=== PATIENT | female | born 1990 | race Caucasian/White ===

== ENCOUNTER 2017-06-20 10:12 | Emergency (ER) | payer MEDICAID ==
[2017-06-20] MEDS ORDERED: Sodium Chloride 0.9% 10 ML Syringe FLUSH PRN (11:04)
--- NOTE | 2017-06-20 11:07 | EDM.PDOC ---
ED HPI GENERAL MEDICAL PROBLEM - General Chief Complaint: Abdominal Pain Stated Complaint: LOWER ABDOMINAL PAIN,NAUSEA,VOMITING Time Seen by Provider: 06/20/17 10:55 Source of Information: Reports: Patient, RN Notes Reviewed History Limitations: Reports: No Limitations - History of Present Illness INITIAL COMMENTS - FREE TEXT/NARRATIVE: 26-year-old female presents emergency department day complaint of abdominal pain , she states the pain has been ongoing for the last couple months however is progressively gotten worse over the last 24 hours it is predominantly suprapubic area she did have nausea and vomiting as well as diarrhea no fever shortness breath or chest pain no significant past medical history does have a Mirena in place for about one year - Related Data Allergies Allergy/AdvReac Type Severity Reaction Status Date / Time No Known Allergies Allergy Verified 06/20/17 10:38 Home Meds: Home Meds . 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 - Infectious Disease History Infectious Disease History: Reports: Chicken Pox Social & Family History - Family History Oncologic: Reports: Other (See Below) Other Oncologic Family History: DAD'S PARENTS BOTH WITH CANCER - - UNKNOWN TYPE - Tobacco Use Smoking Status *Q: Current Every Day Smoker Years of Tobacco use: 10 Packs/Tins Daily: 0.2 Second Hand Smoke Exposure: No - Caffeine Use Caffeine Use: Reports: Coffee - Alcohol Use Days Per Week of Alcohol Use: 7 Number of Drinks Per Day: 2 Total Drinks Per Week: 14 - Recreational Drug Use Recreational Drug Use: No ED ROS GENERAL - Review of Systems Review Of Systems: See Below Constitutional: Denies: Fever, Chills HEENT: Reports: No Symptoms Respiratory: Reports: No Symptoms Cardiovascular: Reports: No Symptoms GI/Abdominal: Reports: Abdominal Pain, Diarrhea, Nausea, Vomiting : Reports: No Symptoms Musculoskeletal: Reports: No Symptoms Skin: Reports: No Symptoms Neurological: Reports: No Symptoms ED EXAM, GI/ABD - Physical Exam Exam: See Below Text/Narrative:: General: Female, not in any distress, alert and oriented x3 HEENT: head is atraumatic normocephalic, eyes pupils equal round reactive to light, sclera clear no conjunctivitis appreciated. Ears tympanic membranes clear and chinchilla landmarks and light reflex are present bilaterally canals are clear. Nose no septal deviation, nares are clear, no blood present. Mouth mucosa is moist and pink no erythema or exudate noted in soft palate, tongue is midline uvula is midline, dentition is intact. Neck: Supple no thyromegaly no tracheal deviation. Nodes: Cervical nodes subclavicular nodes nontender no palpable lymphadenopathy noted. Lungs: clear to auscultation bilaterally with symmetrical respirations, no adventitious noise appreciated. CV: Regular rate and rhythm S1 and S2 appreciated no murmurs rubs or gallops noted. Abdomen: Soft, tender, suprapubic area, no palpable masses or organomegaly appreciated, no distention no guarding bowel sounds are present, no CVA tenderness Neuro: Cranial nerves II through XII grossly intact Skin: Warm and dry, intact Extremities: No lower extremity edema appreciated, pedal pulse is +2. Course - Vital Signs Last Recorded V/S: Last Vital Signs Temp 96.8 F 06/20/17 10:39 Pulse 93 06/20/17 10:39 Resp 16 06/20/17 10:39 BP 130/69 06/20/17 10:39 Pulse Ox 99 06/20/17 10:39 - Orders/Labs/Meds Orders: Active Orders 24 hr Category Date Time Status Peripheral IV Care [RC] . DIRECTED Care 06/20/17 11:04 Active Peripheral IV Insertion Adult [OM.PC] Urgent Oth 06/20/17 11:04 Ordered Labs: Laboratory Tests 06/20/17 06/20/17 06/20/17 Range/Units 11:10 11:10 11:24 WBC 11.3 H (4.5-11.0) K/uL RBC 4.66 (3.30-5.50) M/uL Hgb 14.3 (12.0-15.0) g/dL Hct 42.4 (36.0-48.0) % MCV 91 (80-98) fL MCH 31 (27-31) pg MCHC 34 (32-36) % Plt Count 218 (150-400) K/uL Neut % (Auto) 92 H (36-66) % Lymph % (Auto) 3 L (24-44) % Emmet % (Auto) 4 (2-6) % Eos % (Auto) 0 L (2-4) % Baso % (Auto) 0 (0-1) % Sodium 140 (140-148) mmol/L Potassium 4.2 (3.6-5.2) mmol/L Chloride 107 (100-108) mmol/L Carbon Dioxide 22 (21-32) mmol/L Anion Gap 11.1 (5.0-14.0) mmol/L BUN 17 (7-18) mg/dL Creatinine 0.6 (0.6-1.0) mg/dL Est Cr Clr Drug Dosing 136.96 mL/min Estimated GFR (MDRD) > 60 (>60) Glucose 90 (74-106) mg/dL Calcium 8.7 (8.5-10.1) mg/dL Total Bilirubin 0.9 (0.2-1.0) mg/dL AST 22 (15-37) U/L ALT 18 (12-78) U/L Alkaline Phosphatase 34 L (46-116) U/L C-Reactive Protein 1.35 H (0.0-0.3) mg/dL Total Protein 6.9 (6.4-8.2) g/dL Albumin 3.9 (3.4-5.0) g/dL Globulin 3.0 (2.3-3.5) g/dL Albumin/Globulin Ratio 1.3 (1.2-2.2) Lipase 121 (73-393) U/L Urine Color Urine Appearance Urine pH (4.5-8.0) Ur Specific [place] (1.008-1.030) Urine Protein (NEGATIVE) mg/dL Urine Glucose (UA) (NEGATIVE) mg/dL Urine Ketones (NEGATIVE) mg/dL Urine Occult Blood (NEGATIVE) Urine Nitrite (NEGATIVE) Urine Bilirubin (NEGATIVE) Urine Urobilinogen (NORMAL) mg/dL Ur Leukocyte Esterase (NEGATIVE) Urine RBC (0-5) Urine WBC (0-5) Ur Epithelial Cells Amorphous Sediment Urine Bacteria Urine Mucus Urine HCG, Qual Negative 06/20/17 Range/Units 11:24 WBC (4.5-11.0) K/uL RBC (3.30-5.50) M/uL Hgb (12.0-15.0) g/dL Hct (36.0-48.0) % MCV (80-98) fL MCH (27-31) pg MCHC (32-36) % Plt Count (150-400) K/uL Neut % (Auto) (36-66) % Lymph % (Auto) (24-44) % Emmet % (Auto) (2-6) % Eos % (Auto) (2-4) % Baso % (Auto) (0-1) % Sodium (140-148) mmol/L Potassium (3.6-5.2) mmol/L Chloride (100-108) mmol/L Carbon Dioxide (21-32) mmol/L Anion Gap (5.0-14.0) mmol/L BUN (7-18) mg/dL Creatinine (0.6-1.0) mg/dL Est Cr Clr Drug Dosing mL/min Estimated GFR (MDRD) (>60) Glucose (74-106) mg/dL Calcium (8.5-10.1) mg/dL Total Bilirubin (0.2-1.0) mg/dL AST (15-37) U/L ALT (12-78) U/L Alkaline Phosphatase (46-116) U/L C-Reactive Protein (0.0-0.3) mg/dL Total Protein (6.4-8.2) g/dL Albumin (3.4-5.0) g/dL Globulin (2.3-3.5) g/dL Albumin/Globulin Ratio (1.2-2.2) Lipase (73-393) U/L Urine Color Yellow Urine Appearance Clear Urine pH 5.0 (4.5-8.0) Ur Specific [place] 1.015 (1.008-1.030) Urine Protein Negative (NEGATIVE) mg/dL Urine Glucose (UA) Normal (NEGATIVE) mg/dL Urine Ketones 15 H (NEGATIVE) mg/dL Urine Occult Blood Negative (NEGATIVE) Urine Nitrite Negative (NEGATIVE) Urine Bilirubin Small (NEGATIVE) Urine Urobilinogen Normal (NORMAL) mg/dL Ur Leukocyte Esterase Negative (NEGATIVE) Urine RBC Not seen (0-5) Urine WBC 0-5 (0-5) Ur Epithelial Cells Few Amorphous Sediment Not seen Urine Bacteria Not seen Urine Mucus Moderate Urine HCG, Qual Meds: Medications Discontinued Medications Generic Name Dose Route Start Last Admin Trade Name Freq PRN Reason Stop Dose Admin Sodium Chloride 1,000 mls @ 500 mls/hr 06/20/17 11:15 Normal Saline IV ASDIRECTED KARTHIKEYAN Sodium Chloride 10 ml 06/20/17 11:04 Saline Flush FLUSH ASDIRECTED PRN Keep Vein Open Departure - Departure Time of Disposition: 12:52 Disposition: Home, Self-Care 01 Condition: Good (been discharged) Clinical Impression: Gastroenteritis - Discharge Information Referrals: PCP,None [Primary Care Provider] - Forms: ED Department Discharge Additional Instructions: Use Zofran as needed to control nausea and vomiting symptoms, Please followup with your primary care provider in 3-5 days if not better, please call return to the emergency department with worsening of symptoms. - My Orders Last 24 Hours: My Active Orders 06/20/17 11:04 Peripheral IV Care [RC] . DIRECTED Peripheral IV Insertion Adult [OM.PC] Urgent - Assessment/Plan Last 24 Hours: My Active Orders 06/20/17 11:04 Peripheral IV Care [RC] . DIRECTED Peripheral IV Insertion Adult [OM.PC] Urgent Plan: Assessment Acuity = acute Site and laterality = abdominal pain Etiology = unclear etiology concern for gastroenteritis Manifestations = nausea and vomiting Location of injury = Home Lab values = CBC, CMP within normal limits, CRP 1.26, ultrasound shows IUD correct placement otherwise unremarkable exam, urinalysis unremarkable beta-hCG is negative Plan I did review lab work ultrasound results with her prescription for written for Zofran 4 mg ODT she take by mouth 3 times a day when necessary her follow-up with her primary care in 3-5 days if not better Patient was in agreement with the plan all questions were answered, they were instructed to return to the emergency department or call for worsening symptoms. This note was dictated using [employer] voice recognition software please call with any questions.
[2017-06-20] MEDS ORDERED: Sodium Chloride 0.9% 1,000 ML IV SCH (11:15)
--- NOTE | 2017-06-20 12:30 | US ---
Pelvis Non OB Comp, OB Transvaginal INDICATION: pelvic pain, iud. FINDINGS: The uterus measures 8.0 x 4.5 x 5.7 cm. IUD is in proper position. Endometrial stripe measu res 6 mm. Left and right ovaries are within normal limits with normal vascular flow. IMPRESSION: IUD in proper position. Exam otherwise unremarkable.
== END 2017-06-20 13:16 | disposition home or self-care (01) ==
LOC: JP.ED 10:12
DX: K52.9 Noninfective gastroenteritis and colitis, unspecified (principal); F17.210 Nicotine dependence, cigarettes, uncomplicated
CPT/HCPCS: 36415; 76817; 76817-26; 76830; 76830-26; 76856; 76856-26; 80053; 81001; 81025; 83690; 85025; 86140; 99284-25

== ENCOUNTER 2017-12-24 15:47 | Emergency (ER) | payer MEDICAID ==
[2017-12-24] MEDS ORDERED: Diphtheria,Pertussis(Acell),Tetanus Vaccine 0.5 ML SDV IM ONE (16:12)
--- NOTE | 2017-12-24 16:35 | EDM.PDOC ---
ED HPI GENERAL MEDICAL PROBLEM - General Chief Complaint: Laceration Stated Complaint: CUT LEFT WRIST Time Seen by Provider: 12/24/17 16:00 Source of Information: Reports: Patient History Limitations: Reports: No Limitations - History of Present Illness INITIAL COMMENTS - FREE TEXT/NARRATIVE: 19-year-old female was doing dishes, broke a coffee cup subsequently cutting her left wrist on the flexor surface. She arrived putting pressure on it because it was bleeding. She has full sensation to the fingers. No other injury. Onset: Sudden Duration: Hour(s): (Within the last hour.) Location: Reports: Upper Extremity, Left Associated Symptoms: Reports: No Other Symptoms - Related Data Allergies Allergy/AdvReac Type Severity Reaction Status Date / Time No Known Allergies Allergy Verified 12/24/17 16:01 Home Meds: Home Meds . 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 - Infectious Disease History Infectious Disease History: Reports: Chicken Pox Social & Family History - Family History Oncologic: Reports: Other (See Below) Other Oncologic Family History: DAD'S PARENTS BOTH WITH CANCER - - UNKNOWN TYPE - Tobacco Use Smoking Status *Q: Never Smoker - Caffeine Use Caffeine Use: Reports: Coffee - Recreational Drug Use Recreational Drug Use: No ED ROS GENERAL - Review of Systems Review Of Systems: See Below Constitutional: Denies: Fever Respiratory: Denies: Shortness of Breath GI/Abdominal: Denies: Nausea, Vomiting Neurological: Denies: Paresthesia Psychiatric: Reports: Anxiety (Very anxious about the injury) ED EXAM, SKIN/RASH Exam: See Below Exam Limited By: No Limitations General Appearance: Alert, Anxious Respiratory/Chest: No Respiratory Distress Extremities: Other (Exam was otherwise limited to the left arm. She has a curved flap laceration 2 cm total length. Distal CMS was normal, the depth was not significant) Course - Vital Signs Last Recorded V/S: Last Vital Signs Temp 97.3 F 12/24/17 16:00 Pulse 78 12/24/17 16:00 Resp 16 12/24/17 16:00 BP 104/61 12/24/17 16:00 Pulse Ox 100 12/24/17 16:00 - Orders/Labs/Meds Meds: Medications Discontinued Medications Generic Name Dose Route Start Last Admin Trade Name Ever PRN Reason Stop Dose Admin Bacitracin 1 dose 12/24/17 16:36 12/24/17 16:38 Bacitracin Oint 1 Gm TOP 12/24/17 16:37 1 dose ONETIME ONE Administration Bacitracin Confirm 12/24/17 16:36 12/24/17 16:38 Bacitracin Oint 1 Gm Administered 12/24/17 16:37 Not Given Dose 1 dose .ROUTE .STK-MED ONE Diphtheria/Tetanus/Acell Pertussis 0.5 ml 12/24/17 16:12 12/24/17 16:32 Adacel IM 12/24/17 16:13 0.5 ml .ONCE ONE Administration Lidocaine HCl 5 ml 12/24/17 16:12 12/24/17 16:33 Xylocaine-Mpf 1% INJECT 12/24/17 16:13 5 ml ONETIME ONE Administration - Re-Assessments/Exams Free Text/Narrative Re-Assessment/Exam: 12/24/17 16:33 The area was anesthetized with 1% lidocaine, washed thoroughly with sterile saline and 3 4-0 Ethilon sutures were used to close the laceration. Topical bacitracin was applied and a bandage, and the patient was given a Tdap booster. Sutures can be removed in 8 days. Departure - Departure Time of Disposition: 17:25 Disposition: Home, Self-Care 01 Condition: Good Clinical Impression: Laceration of wrist, left Qualifiers: Encounter type: initial encounter Qualified Code(s): S61.512A - Laceration without foreign body of left wrist, initial encounter - Discharge Information Instructions: Laceration Care, Adult Referrals: PCP,None [Primary Care Provider] - Forms: ED Department Discharge Care Plan Goals: Keep wound covered and clean while healing. Have sutures removed in 8 days, or return sooner if concerns of infection or not healing satisfactorily.
[2017-12-24] MEDS ORDERED: Bacitracin Oint 1 GM U/D Packet TOP ONE (16:36)
[2017-12-24] MEDS ORDERED: Bacitracin Oint 1 GM U/D Packet ONE (16:36)
== END 2017-12-24 17:25 | disposition home or self-care (01) ==
LOC: JP.ED 15:47
DX: S61.512A Laceration without foreign body of left wrist, initial encounter (principal); Z23 Encounter for immunization; W26.9XXA Contact with unspecified sharp object(s), initial encounter
CPT/HCPCS: 12001; 90471; 90715; 99283-25

== ENCOUNTER 2021-07-08 18:20 | Emergency (ER) | payer MEDICAID ==
--- NOTE | 2021-07-08 20:11 | EDM.PDOC ---
ED HPI GENERAL MEDICAL PROBLEM - General Chief Complaint: General Stated Complaint: CHEST PAIN Time Seen by Provider: 07/08/21 19:50 Source of Information: Reports: Patient, Old Records, RN History Limitations: Reports: No Limitations - History of Present Illness INITIAL COMMENTS - FREE TEXT/NARRATIVE: 30 yo female presents with onset early yesterday of sternal and epigastric pain. No fever. Pain is worse with deep breathing. Got partial relief with ibuprofen yesterday and acetaminophen today. No black or bloody stools. Has not been to the clinic for this. Has no pHx of peptic ulcer dz. Does not use ibuprofen more than rarely. Vapes, but does not smoke and doesn't drink soda. Onset: Gradual Onset Date: 07/07/21 Duration: Day(s): (1.5), Waxing/Waning Location: Reports: Chest, Abdomen Quality: Reports: Sharp Severity: Moderate Improves with: Reports: Medication Worsens with: Reports: Breathing (deep) Context: Reports: Other (See HPI) Associated Symptoms: Reports: No Other Symptoms Treatments [facility]OSP[facility]: Reports: Acetaminophen Middle Mid-Sternal Chest Pain Score (Numeric/FACES): 6 - Related Data Allergies Allergy/AdvReac Type Severity Reaction Status Date / Time No Known Allergies Allergy Verified 07/08/21 19:23 Home Meds: Home Meds NK [No Known Home Meds] 07/08/21 [History] Past Medical History - Past Health History Medical/Surgical History: Denies Medical/Surgical History HEENT History: Reports: Impaired 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 Musculoskeletal History: Reports: Fracture - Infectious Disease History Infectious Disease History: Reports: Chicken Pox, Novel Coronavirus Social & Family History - Family History Oncologic: Reports: Other (See Below) Other Oncologic Family History: DAD'S PARENTS BOTH WITH CANCER - - UNKNOWN TYPE - Tobacco Use Tobacco Use Status *Q: Current Every Day Tobacco User Years of Tobacco use: 15 Packs/Tins Daily: 1 - Caffeine Use Caffeine Use: Reports: Coffee - Recreational Drug Use Recreational Drug Use: No ED ROS GENERAL - Review of Systems Review Of Systems: See Below Constitutional: Reports: No Symptoms HEENT: Reports: No Symptoms Respiratory: Reports: No Symptoms Cardiovascular: Reports: Chest Pain (sternal) GI/Abdominal: Reports: Abdominal Pain (epigastric). Denies: Black Stool, Bloody Stool, Hematochezia, Melena, Nausea : Reports: No Symptoms Musculoskeletal: Reports: No Symptoms Skin: Reports: No Symptoms ED EXAM, GENERAL - Physical Exam Exam: See Below Exam Limited By: No Limitations General Appearance: Alert, WD/WN, No Apparent Distress Eye Exam: Bilateral Eye: Normal Inspection Ears: Normal External Exam, Normal Canal, Hearing Grossly Normal Ear Exam: Bilateral Ear: Auricle Normal, Canal Normal Nose: Normal Inspection, No Blood Throat/Mouth: Normal Inspection, Normal Lips, Normal Oropharynx, Normal Voice, No Airway Compromise Head: Atraumatic, Normocephalic Neck: Normal Inspection Respiratory/Chest: No Respiratory Distress, Lungs Clear, Normal Breath Sounds, No Accessory Muscle Use, Other (tender over the lower 1/2 of the sternum only). No: Chest Non-Tender Cardiovascular: Regular Rate, Rhythm, No Edema GI/Abdominal: Normal Bowel Sounds, Soft, No Distention, Tender (epigastrium and extreme LUQ only). No: Non-Tender, Distended, Guarding, Rigid, Rebound Back Exam: Normal Inspection Extremities: Normal Inspection Neurological: Alert, Oriented, Normal Cognition Psychiatric: Normal Affect, Normal Mood Skin Exam: Warm, Dry, Intact, Normal Color, No Rash Course - Vital Signs Last Recorded V/S: Last Vital Signs Temp 36.7 C 07/08/21 19:29 Pulse 109 H 07/08/21 19:29 Resp 16 07/08/21 19:29 BP 136/87 07/08/21 19:29 Pulse Ox 96 07/08/21 19:29 Departure - Departure Time of Disposition: 20:11 Disposition: Home, Self-Care 01 Condition: Good Clinical Impression: Costochondritis Gastritis Qualifiers: Gastritis type: unspecified gastritis Chronicity: acute Gastritis bleeding: without bleeding Qualified Code(s): K29.00 - Acute gastritis without bleeding - Discharge Information *PRESCRIPTION DRUG MONITORING PROGRAM REVIEWED*: Not Applicable *COPY OF PRESCRIPTION DRUG MONITORING REPORT IN PATIENT SELVIN: Not Applicable Instructions: Costochondritis, [id number], Gastritis, Adult, [id number] Referrals: Poly Awan, RN [Primary Care Provider] - Additional Instructions: Acetaminophen 1000 mg every 6 hrs as needed for pain relief. Maalox 30 ml with meals and bedtime as needed for epigastric pain. Avoid carbonation, smoking, or NSAID's like ibuprofen or Aleve. Recheck next week with your provider. Return for black stools or vomiting of blood. Sepsis Event Note (ED) - Evaluation Sepsis Screening Result: No Definite Risk - Focused Exam Vital Signs: Vital Signs Temp Pulse Resp BP Pulse Ox 07/08/21 19:29 36.7 C 109 H 16 136/87 96
== END 2021-07-08 20:16 | disposition home or self-care (01) ==
LOC: JP.ED 18:20
DX: K29.00 Acute gastritis without bleeding (principal); M94.0 Chondrocostal junction syndrome [Tietze]; Z86.16 Personal history of COVID-19; Z72.0 Tobacco use
CPT/HCPCS: 99284